=== PATIENT | male | born 1970 ===

== ENCOUNTER 2019-05-30 10:25 | Emergency (ER) | payer BC ==
[2019-05-30 11:06] LABS: Hematocrit 41.3 % (35.5-45.6); Hemoglobin 14.4 gm/dl (11.8-15.2); Mean Corpuscular HGB Conc 35 % (32-34); Mean Corpuscular Volume 98 fl (84-94); Platelet Count 259 K/mm3 (140-440); Red Blood Count 4.21 M/mm3 (3.65-5.03); Red Cell Distribution Width 12.6 % (13.2-15.2)
[2019-05-30 11:22] LABS: Calcium 9.3 mg/dL (8.4-10.2)
[2019-05-30] MEDS ORDERED: NACL 0.9% 1000 ML 1,000 ML IV ONE (11:29)
--- NOTE | 2019-05-30 11:29 | Emergency Department Report ---
HPI - General Chief Complaint: Pain General - HPI HPI: *Sagar is a pleasant male who comes to the ER today complaining that he thinks he is dehydrated. He states that his body just has general malaise and fatigue. 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 He denies any medical history. He has no surgical history. He is on no home medications. ED Past Medical Hx - Past Medical History Previous Medical History?: No - Surgical History Past Surgical History?: No - Social History Smoking Status: Former Smoker Substance Use Type: Alcohol ED Review of Systems ROS: Stated complaint: DEHYDRATED Other details as noted in HPI Comment: All other systems reviewed and negative Physical Exam - Physical Exam Vital Signs: Vital Signs 05/30/19 10:50 Temperature 98.4 F Pulse Rate 80 Respiratory 20 Rate Blood Pressure 111/75 O2 Sat by Pulse 96 Oximetry Physical Exam: WDWN patient in NAD VS per RN flow sheet Alert and oriented to person, place and time. S1-S2. No S3 or S4. No systolic or diastolic murmur. No JVD. No pitting edema. Lungs clear to auscultation bilaterally anteriorly and posteriorly. Abdomen soft nontender bowel sounds X4 Moves all extremities well. Mood and affect appropriate. ED Course Vital Signs 05/30/19 10:50 Temperature 98.4 F Pulse Rate 80 Respiratory 20 Rate Blood Pressure 111/75 O2 Sat by Pulse 96 Oximetry ED Medical Decision Making - Lab Data Result diagrams: 05/30/19 10:59 05/30/19 10:59 - Medical Decision Making Labs 05/30/19 05/30/19 10:59 10:59 WBC 15.0 H RBC 4.21 Hgb 14.4 Hct 41.3 MCV 98 H MCH 34 H MCHC 35 H RDW 12.6 L Plt Count 259 Sodium 136 L Potassium 3.9 Chloride 98.8 Carbon Dioxide 27 Anion Gap 14 BUN 10 Creatinine 1.4 Estimated GFR 54 BUN/Creatinine Ratio 7 Glucose 108 H Calcium 9.3 Total Creatine Kinase 388 H Vital Signs 05/30/19 10:50 Temperature 98.4 F Pulse Rate 80 Respiratory 20 Rate Blood Pressure 111/75 O2 Sat by Pulse 96 Oximetry LABS NOTED CK INC CR NORMAL IN HEAT ALL DAY YESTERDAY VSS NO FEVER NO CHILLS 1L NS GIVEN IV AND PT FEELS BETTER DC HOME WITH DC PLAN OF CARE AND PCP FOLLOW UP NEXT WEEK. - Differential Diagnosis DEHYDRATION; RO ALESIA; HEAT ILLNESS Critical care attestation.: If time is entered above; I have spent that time in minutes in the direct care of this critically ill patient, excluding procedure time. ED Disposition Clinical Impression: Heat cramps Disposition: - TO HOME OR SELFCARE Is pt being admited?: No Does the pt Need Aspirin: No Condition: Stable Instructions: Muscle Cramp (ED), Fatigue (ED), Heat Exhaustion (ED) Additional Instructions: AVOID ALCOHOL DRINK A LOT OF WATER AVOID THE HEAT FOLLOW UP WITH PCP NEXT WEEK FOR RECHECK REFERRAL BELOW Referrals: YULI MUNIZ MD [Primary Care Provider] - 3-5 Days WHIT BETTENCOURT MD [Staff Physician] - 3-5 Days Time of Disposition: 12:31
[2019-05-30 13:05] VITALS: BP 118/78
[2019-05-30 13:13] LABS: Bilirubin,Urine NEG (Negative); Blood,Urine LG (Negative); Color,Urine Amber (Yellow); Mucus,Urine 1+ /HPF
[2019-05-30 13:16] LABS: RBC,Urine > 182.0 /HPF (0.0-6.0); WBC,Urine > 182.0 /HPF (0.0-6.0)
== END 2019-05-30 13:04 | disposition home or self-care (01) ==
LOC: ED 10:25
DX: T67.2XXA Heat cramp, initial encounter (principal); Z87.891 Personal history of nicotine dependence; Y92.89 Other specified places as the place of occurrence of the external cause
CPT/HCPCS: 36415; 80048; 81001; 82550; 85027; 96360; 99283; J7030